=== PATIENT | female | born 1995 | race Caucasian/White ===

== ENCOUNTER 2016-09-10 21:27 | Emergency (ER) | payer BC ==
[~2016-09-10] VITALS: Ht 157.5 cm; Wt 52.2 kg
[2016-09-10 22:36] VITALS: BP 112/70
[2016-09-10 22:39] VITALS: BP 116/64
[2016-09-10] MEDS ORDERED: BENTYL10 MG ORAL (22:41)
[2016-09-10] MEDS ORDERED: PEPCID20 MG ORAL (22:41)
--- NOTE | 2016-09-10 23:49 | Emergency Room Report ---
History of Present Illness General Chief Complaint: Abdominal Pain Source: Patient Present Illness HPI Patient's 20-year-old female presented after increased abdominal discomfort and dark stools. The patient stated that she had a previous history of common bile duct obstruction. Patient scheduled for ERCP.She denied fever. She denied vomiting. She denied diarrhea.The patient denied recent travel or antibiotic use. She denied urinary symptoms. Allergies: Coded Allergies: No Known Allergies (Unverified , 09/10/16) Patient History Past Medical History: see triage record Last Menstrual Period: 09/06/16 Now: No - Pt on control : 0 Reviewed Nursing Documentation: PMH: Agreed, PSxH: Agreed Nursing Documentation-PMH Past Medical History: No Stated History Hx Cardiac Problems: No Hx Hypertension: No Hx Pacemaker: No Hx Asthma: No Hx COPD: No Hx Diabetes: No Hx Cancer: No Hx Gastrointestinal Problems: No Hx Dialysis: No History Of Psychiatric Problem: No Hx Neurological Problems: No Hx Cerebrovascular Accident: No Hx Seizures: No Review of Systems All Other Systems: negative except mentioned in HPI Physical Exam Vital Signs Date Time Temp Pulse Resp B/P Pulse Ox O2 Delivery O2 Flow Rate FiO2 09/10/16 21:49 99.1 120 18 133/82 98 Room Air Sp02 EP Interpretation: reviewed, normal General Appearance: normal inspection, well appearing, no apparent distress, alert Head: atraumatic ENT: normal ENT inspection, hearing grossly normal, normal voice Neck: normal inspection, full range of motion, supple, no bony tend Respiratory: normal inspection, lungs clear, normal breath sounds, no respiratory distress, no retraction, no wheezing Cardiovascular #1: regular rate, rhythm, no edema Gastrointestinal: normal inspection, normal bowel sounds, non tender, soft, no guarding, no hernia Rectal: normal exam, heme negative stool Genitourinary: no CVA tenderness Musculoskeletal: normal inspection, back normal, normal range of motion Neurologic: normal inspection, alert, responsive, speech normal Psychiatric: normal inspection, judgement/insight normal, mood/affect normal Skin: normal inspection, normal color, no rash Medical Decision Making Diagnostic Impression: Primary Impression: Abdominal pain ER Course Patient presented for abdominal pain. Differential diagnoses included ischemic bowel, appendicitis, perforated viscus, abdominal aortic aneurysm, inferior myocardial infarction, viral gastroenteritis. The patient was noted to have negative test. The stool guaiac was negative for blood. The patient is advised to follow up with primary care doctor in 1-2 days. Patient is advised to return if any worsening condition or if any changes in status that are concerning. Labs Test 09/10/16 22:00 Urine HCG, Qualitative Negative EKG Diagnostic Results Rate: normal Rhythm: NSR ST Segments: no acute changes Last Vital Signs Date Time Temp Pulse Resp B/P Pulse Ox O2 Delivery O2 Flow Rate FiO2 09/10/16 21:49 99.1 120 18 133/82 98 Room Air Status: improved Disposition: HOME, SELF-CARE Condition: Stable Scripts Famotidine (PEPCID) 20 Mg Tablet 20 MG ORAL DAILY, #14 TAB 0 Refills Prov: Matthew Chen 09/10/16 Dicyclomine Hcl* (BENTYL*) 10 Mg Capsule 10 MG ORAL FOUR TIMES A DAY, #30 CAP Prov: Matthew Chen 09/10/16 Referrals: [facility] (PCP) Patient Instructions: Abdominal Pain, Adult Matthew Chen Sep 10, 2016 23:49
== END 2016-09-10 22:45 | disposition home or self-care (01) ==
LOC: EMR 22:30
DX: R10.9 Unspecified abdominal pain (principal); K92.1 Melena; Z79.3 Long term (current) use of hormonal contraceptives
CPT/HCPCS: 81025; 99284

== ENCOUNTER 2016-11-15 20:14 | Emergency (ER) | payer BC ==
[~2016-11-15] VITALS: Ht 154.9 cm; Wt 54.4 kg
[~2016-11-15 20:14] MED LIST: BENTYL10 MG ORAL; PEPCID20 MG ORAL
[2016-11-15 20:25] VITALS: BP 129/85
--- NOTE | 2016-11-15 20:43 | Emergency Room Report ---
History of Present Illness General Chief Complaint: Abdominal Pain Source: Patient Present Illness HPI Patient presents with epigastric pain. It started after she ate some soup earlier tonight. It became severe and crampy radiating towards her back. It's improved somewhat after she came. The patient had ERCP on . After the procedure until this afternoon she had no pain. In recovery she remembers the doctor saying that everything looked fine. She's had ERCP because of prior ultrasound showed that there was dilatation of the common bile duct. An MRI of the abdomen was negative prior to the ultrasound. She is uncertain whether biopsies were taken at the time of the ERCP. She doesn't take any routine medications at this time and states that she only has aspirin for pain. Denies dysuria. Her last normal period was 2 and half weeks ago. She moved her bowels earlier today and they were normal without any black or tarry stools. (Initially she had black stools.) She is stressed about this problem. She drank alcohol 2 weekends ago but doesn't drink daily. Allergies: Coded Allergies: No Known Allergies (Unverified , 09/10/16) Patient History Past Medical History: see triage record Social History: Reports: alcohol use, Denies: smoking Social History Narrative walked 3 blocks to get here Last Menstrual Period: 2 weeks ago Reviewed Nursing Documentation: PMH: Agreed, PSxH: Agreed Nursing Documentation-PM Past Medical History: No Stated History Hx Cardiac Problems: No Hx Hypertension: No Hx Pacemaker: No Hx Asthma: No Hx COPD: No Hx Diabetes: No Hx Cancer: No Hx Gastrointestinal Problems: No Hx Dialysis: No Hx Neurological Problems: No Hx Cerebrovascular Accident: No Hx Seizures: No Review of Systems All Other Systems: negative except mentioned in HPI Physical Exam Vital Signs Date Time Temp Pulse Resp B/P (MAP) Pulse Ox O2 Delivery O2 Flow Rate FiO2 11/15/16 20:17 97.9 92 18 129/85 100 Room Air Sp02 EP Interpretation: reviewed, normal General Appearance: well appearing, no apparent distress, GCS 15 Head: normocephalic Eyes: bilateral eye normal inspection, bilateral eye PERRL ENT: moist mucus membranes Neck: supple Respiratory: lungs clear, normal breath sounds Cardiovascular #1: regular rate, rhythm Cardiovascular #2: 2+ radial (R) Gastrointestinal: normal inspection, normal bowel sounds, no mass, non- distended, no rebound, tenderness - epigastric Musculoskeletal: back normal, gait/station normal, normal range of motion Neurologic: alert, oriented x3, grossly normal Psychiatric: anxious - tearful Skin: normal inspection, warm/dry Medical Decision Making Diagnostic Impression: Primary Impression: Abdominal pain Qualified Codes: R10.13 - Epigastric pain Additional Impression: History of ERCP ER Course Patient presents with severe epigastric pain after ERCP 2 days ago. Differential includes gastritis, GERD, esophageal spasms, gastroenteritis, pancreatitis, perforation amongst others. Evaluation will be with chest x-ray abdominal films and labs. Lately treated with IV hydration, Reglan, Benadryl and Pepcid. Labs with normal WBC and H/H. Minimally elevated lipase not felt to represent pancreatitis (discussed with patient). Abd films negative. CXR negative. Min elevation of ALT. Improved with treatment. Pain nearly gone. Patient stable for outpatient observation and treatment. Laboratory Tests Test 11/15/16 20:40 White Blood Count 7.7 K/UL (4.8-10.8) Red Blood Count 4.58 M/UL (4.20-5.40) Hemoglobin 13.9 G/DL (12.0-16.0) Hematocrit 43.4 % (37.0-47.0) Mean Corpuscular Volume 95 FL (80-99) Mean Corpuscular Hemoglobin 30.4 PG (27.0-31.0) Mean Corpuscular Hemoglobin Concent 32.1 G/DL (32.0-36.0) Red Cell Distribution Width 11.5 % (11.6-14.8) L Platelet Count 218 K/UL (150-450) Mean Platelet Volume 6.4 FL (6.5-10.1) L Neutrophils (%) (Auto) 49.8 % (45.0-75.0) Lymphocytes (%) (Auto) 39.3 % (20.0-45.0) Monocytes (%) (Auto) 7.3 % (1.0-10.0) Eosinophils (%) (Auto) 2.3 % (0.0-3.0) Basophils (%) (Auto) 1.2 % (0.0-2.0) Prothrombin Time 10.2 SEC (9.30-11.50) Prothrombin Time INR 1.0 (0.9-1.1) PTT 23 SEC (23-33) Urine Color Pale yellow Urine Appearance Clear Urine pH 6 (4.5-8.0) Urine Specific Mabel 1.020 (1.005-1.035) Urine Protein Negative (NEGATIVE) Urine Glucose (UA) Negative (NEGATIVE) Urine Ketones Negative (NEGATIVE) Urine Occult Blood Negative (NEGATIVE) Urine Nitrite Negative (NEGATIVE) Urine Bilirubin Negative (NEGATIVE) Urine Urobilinogen 1 MG/DL (0.0-1.0) H Urine Leukocyte Esterase 1+ (NEGATIVE) H Urine RBC 0-2 /HPF (0 - 2) Urine WBC 2-4 /HPF (0 - 2) Urine Squamous Epithelial Cells Moderate /LPF (NONE/OCC) H Urine Bacteria Few /HPF (NONE) Urine HCG, Qualitative Negative Sodium Level 141 mEQ/L (135-145) Potassium Level 4.0 mEQ/L (3.4-4.9) Chloride Level 102 mEQ/L (98-107) Carbon Dioxide Level 26 mEQ/L (20-30) Anion Gap 13 (5-15) Blood Urea Nitrogen 12 mg/dL (7-23) Creatinine 0.7 mg/dL (0.5-0.9) Estimate Glomerular Filtration Rate > 60 mL/min (>60) Glucose Level 115 mg/dL (74-106) H Calcium Level 9.5 mg/dL (8.6-10.2) Total Bilirubin 0.3 mg/dL (0.0-1.2) Aspartate Amino Transferase (AST) 34 U/L (5-40) Alanine Aminotransferase (ALT) 42 U/L (3-33) H Alkaline Phosphatase 54 U/L (35-104) Total Protein 8.9 g/dL (6.6-8.7) H Albumin 4.4 g/dL (3.5-5.2) Globulin 4.5 g/dL Albumin/Globulin Ratio 0.9 (1.0-2.7) L Lipase 63 U/L (< 60) H Chest X-Ray Diagnostic Results Chest X-Ray Diagnostic Results : Chest X-Ray Ordered: Yes # of Views/Limited/Complete: 1 View Indication: Other EP Interpretation: Yes Interpretation: no consolidation, no effusion, no pneumothorax, no acute cardiopulmonary disease Impression: No acute disease Electronically Signed by: Favian Arango MD Other X-Ray Diagnostic Results Other X-Ray Diagnostic Results : X-Ray ordered: Abd # of Views/Limited Vs Complete: 1 View Indication: Pain EP Interpretation: Yes Interpretation: nonspecific bowel gas, no sbo, other - no masses or free air Impression: No acute disease Electronically Signed by: Favian Arango MD Last Vital Signs Date Time Temp Pulse Resp B/P (MAP) Pulse Ox O2 Delivery O2 Flow Rate FiO2 11/15/16 22:34 97.6 92 17 119/76 100 Room Air Status: improved Disposition: HOME, SELF-CARE Condition: Improved Scripts Famotidine (PEPCID) 20 Mg Tablet 20 MG ORAL DAILY, #30 TAB 0 Refills Prov: Favian Arango M.D. 11/15/16 Ondansetron Odt* (ZOFRAN ODT*) 4 Mg Tab.rapdis 4 MG ORAL Q8HR Y for Nausea & Vomiting, #6 TAB 1 Refill Prov: Favian Arango M.D. 11/15/16 Tramadol Hcl* (ULTRAM*) 50 Mg Tablet 50 MG ORAL Q6H Y for For Pain, #6 TAB 1 Refill Prov: Favian Arango M.D. 11/15/16 Favian Arango M.D. Nov 15, 2016 20:43
[2016-11-15] MEDS ORDERED: Metoclopramide 10mg/2ml Inj IVP ONE (20:45)
[2016-11-15] MEDS ORDERED: DiphenhydrAMINE 50mg/ml Inj IVP ONE (20:45)
[2016-11-15 20:59] LABS: BASOPHILS % (AUTO) 1.2 % (0.0-2.0); EOSINOPHILS % (AUTO) 2.3 % (0.0-3.0); LYMPHOCYTES % (AUTO) 39.3 % (20.0-45.0); MEAN CORPUSCULAR HEMOGLOBIN 30.4 PG (27.0-31.0); MEAN CORPUSCULAR HGB CONC 32.1 G/DL (32.0-36.0); MEAN CORPUSCULAR VOLUME 95 FL (80-99); MEAN PLATELET VOLUME 6.4 FL (6.5-10.1); MONOCYTES % (AUTO) 7.3 % (1.0-10.0); NEUTROPHILS % (AUTO) 49.8 % (45.0-75.0); PLATELET COUNT 218 K/UL (150-450); RED BLOOD COUNT 4.58 M/UL (4.20-5.40); RED CELL DISTRIBUTION WIDTH 11.5 % (11.6-14.8); WHITE BLOOD COUNT 7.7 K/UL (4.8-10.8)
[2016-11-15 21:03] LABS: APPEARANCE,URINE CLEAR; KETONES,URINE NEGATIVE (NEGATIVE); LEUKOCYTE ESTERASE ,URINE 1+ (NEGATIVE); NITRITE,URINE NEGATIVE (NEGATIVE); PH,URINE 6 (4.5-8.0); PROTEIN,URINE NEGATIVE (NEGATIVE); UROBILINOGEN,URINE 1 MG/DL (0.0-1.0)
[2016-11-15 21:10] LABS: PROTHROMBIN TIME 10.2 SEC (9.30-11.50)
[2016-11-15 21:22] LABS: BACTERIA,URINE FEW /HPF; RBC,URINE 0-2 /HPF (0 - 2); SQUAMOUS EPITHELIAL CELL,UR MODERATE /LPF (NONE/OCC)
[2016-11-15 21:27] LABS: ALANINE AMINOTRANSFERASE 42 U/L (3-33); ALBUMIN/GLOBULIN RATIO 0.9 (1.0-2.7); ANION GAP 13 (5-15); ASPARTATE AMINO TRANSFERASE 34 U/L (5-40); CALCIUM 9.5 mg/dL (8.6-10.2); CARBON DIOXIDE 26 mEQ/L (20-30); CHLORIDE 102 mEQ/L (98-107); CREATININE 0.7 mg/dL (0.5-0.9); GLOMERULAR FILTRATION RATE > 60 mL/min (>60); HEMOLYSIS 6; LIPASE 63 U/L (< 60); SODIUM 141 mEQ/L (135-145); TOTAL PROTEIN 8.9 g/dL (6.6-8.7)
[2016-11-15] MEDS ORDERED: PEPCID20 MG ORAL (22:16)
[2016-11-15] MEDS ORDERED: TRAMADOL HCL50 MG ORAL (22:16)
[2016-11-15] MEDS ORDERED: ZOFRAN ODT4 MG ORAL (22:16)
[2016-11-15 22:30] VITALS: BP 119/76
[2016-11-15 22:34] VITALS: BP 119/76
--- NOTE | 2016-11-16 09:20 | Diagnostic Imaging Report ---
Indication: Chest pain Technique: XRAY CHEST 1 V Comparison: None Findings: The cardiomediastinal silhouette is within normal limits. There is no focal consolidation, pneumothorax or pleural effusion. Osseous structures demonstrate no acute abnormality. Impression: No acute cardiopulmonary disease.
--- NOTE | 2016-11-16 09:21 | Diagnostic Imaging Report ---
Indication: Abdominal pain Technique: Supine views of the abdomen Comparison: None Findings: Bowel gas pattern is nonobstructive and nonspecific. Gas and stool are noted of the colon. There is no gross free intraperitoneal air. Osseous structures demonstrate no acute abnormality. Impression: Nonobstructive and nonspecific bowel gas pattern.
== END 2016-11-15 22:34 | disposition home or self-care (01) ==
LOC: EMR 20:55
DX: R10.13 Epigastric pain (principal); R07.9 Chest pain, unspecified
CPT/HCPCS: 36415; 71010; 74000; 80053; 81003; 81025; 83690; 85025; 85610; 85730; 96374; 96375; 99284; J1200; J2765; S0028